=== PATIENT | female | born 1985 | race Caucasian/White ===

== ENCOUNTER 2020-07-25 22:43 | Emergency (ER) | payer MEDICAID ==
[~2020-07-25] VITALS: Ht 154.9 cm; Wt 59.1 kg
[2020-07-25] MEDS ORDERED: ACETAMINOPHEN 500 MG TABLET PO ONE (23:30)
[2020-07-26 00:11] LABS: APPEARANCE,URINE CLEAR (CLEAR); BILIRUBIN,URINE NEGATIVE (NEGATIVE); GLUCOSE, URINE (UA) NEGATIVE (NEGATIVE); KETONES,URINE NEGATIVE (NEGATIVE); LEUKOCYTE ESTERASE ,URINE NEGATIVE (NEGATIVE); NITRATE,URINE NEGATIVE (NEGATIVE); OCCULT BLOOD,URINE SMALL (NEGATIVE); PROTEIN,URINE NEGATIVE (NEGATIVE); UROBILINOGEN,URINE 0.2 mg/dL (<=1.0)
[2020-07-26 00:28] LABS: BACTERIA,URINE None Seen /HPF (None Seen); RBC,URINE 0-2 /HPF (0-2); WBC,URINE 0-2 /HPF (0-5)
[2020-07-26 00:29] LABS: SQUAMOUS EPITHELIAL CELL,UR Few /LPF (None Seen)
[2020-07-26] MEDS ORDERED: LIDOCAINE 5% TRANSDERMAL PATCH TD ONE (01:15)
[2020-07-26 02:00] VITALS: BP 122/61
== END 2020-07-26 03:11 | disposition home or self-care (01) ==
LOC: EMS 22:45
DX: M54.5 Low back pain (principal); M25.551 Pain in right hip
CPT/HCPCS: 72125; 72131; 81001; 99283; 99285